=== PATIENT | female | born 1990 | race Caucasian/White ===

== ENCOUNTER 2017-12-21 11:40 | Emergency (ER) | payer OTHER ==
[2017-12-21 11:45] VITALS: O2SAT 99
[2017-12-21] MEDS ORDERED: Sodium Chloride 0.9% 1,000 ML IV STA (12:22)
[2017-12-21 13:02] LABS: BASO % 0.3 % (0.0-2.0); EOS # 0.1 K/uL (0.0-0.7); EOS % 0.5 % (0.0-4.0); HEMOGLOBIN 14.5 g/dL (12.0-16.0); LYMPH # 1.8 K/uL (1.0-4.3); LYMPH % 14.6 % (20.0-40.0); MEAN CELL VOLUME 81.4 fl (81.0-99.0); MEAN CORPUSCULAR HEMOGLOBIN 26.6 pg (27.0-31.0); MEAN CORPUSCULAR HGB CONC 32.7 g/dL (33.0-37.0); MEAN PLATELET VOLUME 7.5 fl (7.2-11.7); MONO # 0.7 K/uL (0.0-0.8); MONO % 5.7 % (0.0-10.0); NEUT % 78.9 % (50.0-75.0); RBC 5.45 Mil/uL (3.80-5.20); RED CELL DISTRIBUTION WIDTH 13.5 % (11.5-14.5); WHITE BLOOD COUNT 12.6 K/uL (4.8-10.8)
[2017-12-21 13:10] LABS: URINE BILIRUBIN NEGATIVE (NEGATIVE); URINE BLOOD NEGATIVE (NEGATIVE); URINE CLARITY SLIGHTY-CLOUDY (Clear); URINE COLOR YELLOW (YELLOW); URINE GLUCOSE (UA) NEG (Normal); URINE LEUKOCYTE ESTERASE NEG Leu/uL (Negative); URINE PROTEIN NEGATIVE (NEGATIVE); URINE UROBILINOGEN 0.2-1.0 mg/dL (0.2-1.0)
[2017-12-21 13:16] LABS: ALB/GLOB RATIO 1.4 (1.0-2.1); ALBUMIN 4.9 g/dL (3.5-5.0); ALT/SGPT 36 U/L (9-52); AST/SGOT 39 U/L (14-36); BLOOD UREA NITROGEN 9 mg/dl (7-17); CALCIUM 10.1 mg/dL (8.4-10.2); GFR NON-AFRICAN AMERICAN > 60; LIPASE 26 U/L (23-300)
--- NOTE | 2017-12-21 13:26 | CT ---
Date of service: 12/21/2017 PROCEDURE: CT Abdomen and Pelvis without intravenous contrast HISTORY: Left abdominal pain COMPARISON: None. TECHNIQUE: Helical CT of the abdomen and pelvis was performed without oral or intravenous contrast as per referring physician request. Coronal and sagittal reformats were generated. Contrast dose: None Radiation dose: Total exam DLP = 833.45 mGy-cm. This CT exam was performed using one or more of the following dose reduction techniques: Automated exposure control, adjustment of the mA and/or kV according to patient size, and/or use of iterative reconstruction technique. FINDINGS: LOWER THORAX: Unremarkable. LIVER: Unremarkable. No gross lesion or ductal dilatation. GALLBLADDER AND BILE DUCTS: Unremarkable. PANCREAS: Unremarkable. No gross lesion or ductal dilatation. SPLEEN: Unremarkable. ADRENALS: Unremarkable. No mass. KIDNEYS AND URETERS: No radiodense urolithiasis, perinephric fluid collection or obstructive uropathy is appreciate bilaterally. The bilateral ureters appear normal caliber overall. VASCULATURE: Unremarkable. No aortic aneurysm. No aortic atherosclerotic calcification or mural plaque present. BOWEL: Unremarkable. No obstruction. No gross mural thickening. APPENDIX: Unremarkable. Normal appendix. PERITONEUM: Unremarkable. No free fluid. No free air. LYMPH NODES: Unremarkable. No enlarged lymph nodes. BLADDER: Limited evaluation due to decompression. No radiodense urolithiasis is identified in the urinary bladder. REPRODUCTIVE: Trace fluid suspected in the pelvis of uncertain origin. Suspected jewelry at the labia. BONES: No acute fracture. OTHER FINDINGS: None. IMPRESSION: Unremarkable CT of the abdomen. Trace fluid question in the pelvis of uncertain origin. No suspicious adnexal mass appreciated either X compartment grossly.
[2017-12-21 13:38] LABS: BARBITURATES, UR NEGATIVE (NEGATIVE); BENZODIAZEPINES, UR NEGATIVE (NEGATIVE); OPIATES, UR NEGATIVE (NEGATIVE); PHENCYCLIDINE, UR NEGATIVE (NEGATIVE)
--- NOTE | 2017-12-21 14:26 | ED PDOC ---
HPI: Abdomen Time Seen by Provider: 12/21/17 12:05 Chief Complaint (Nursing): Abdominal Pain Chief Complaint (Provider): Abdominal Pain and Nausea History Per: Patient History/Exam Limitations: no limitations Onset/Duration Of Symptoms: Days (x4) Current Symptoms Are (Timing): Still Present Additional Complaint(s): Charisma Zhang, a 27 year old female with no significant past medical history, present to the ED complaining of abdominal pain, nausea, and nonbilious nonbl oody vomiting onset x4 days ago. Patient states pain is constant and gets worse with eating. She reports she has not been able to eat and drink due to constant chills, nausea, and vomiting. She states she went to the [employer] last week and was diagnosed with a vaginal yeast infection, and patient was prescribed Flagyl. She reports taking Flagyl on last Sunday, and symptoms onset afterwards. She stopped taking Flagyl two days later. She denies diarrhea, back pain, fever, and taking medications for abdominal pain, nausea, and vomiting. Patient admits to heavy smoking and marijuana use daily PCP: none provided Past Medical History Reviewed: Historical Data, Nursing Documentation, Vital Signs Vital Signs: Last Vital Signs Temp 97.7 F 12/21/17 11:45 Pulse 102 H 12/21/17 11:45 Resp 20 12/21/17 11:45 BP 168/90 H 12/21/17 11:45 Pulse Ox 99 12/21/17 11:45 - Medical History PMH: Anxiety, Asthma, Depression, HTN, Hypercholesterolemia - Surgical History Surgical History: No Surg Hx - Family History Family History: States: Unknown Family Hx - Social History Current smoker - smoking cessation education provided: Yes (heavy) Drugs: Cannabis (daily) - Home Medications Home Medications: Ambulatory Orders Medication Instructions Recorded Amoxicillin/Clavulanate [Augmentin 1 tab PO BID #14 tab 02/08/15 875 MG-125 MG] Escitalopram [Lexapro] 10 mg PO DAILY 02/08/15 Fluticasone Propionate [Flonase] 1 actuation NS DAILY #0 ml 02/08/15 Famotidine [Pepcid] 20 mg PO DAILY #14 tab 12/21/17 Metoclopramide HCl [Reglan] 10 mg PO TID PRN #15 tablet 12/21/17 Ondansetron ODT [Zofran ODT] 4 mg PO Q8 PRN #12 odt 12/21/17 - Allergies Allergies/Adverse Reactions: Allergies Allergy/AdvReac Type Severity Reaction Status Date / Time No Known Allergies Allergy Verified 02/08/15 16:07 Review of Systems ROS Statement: Except As Marked, All Systems Reviewed And Found Negative Constitutional: Positive for: Chills. Negative for: Fever Gastrointestinal: Positive for: Nausea, Vomiting, Abdominal Pain. Negative for: Diarrhea Musculoskeletal: Negative for: Back Pain Physical Exam - Reviewed Nursing Documentation Reviewed: Yes Vital Signs Reviewed: Yes - Physical Exam Appears: Positive for: Uncomfortable (due to nausea, vomiting, and dry heaving) Head Exam: Positive for: ATRAUMATIC, NORMAL INSPECTION, NORMOCEPHALIC Skin: Positive for: Normal Color, Warm Eye Exam: Positive for: EOMI, Normal appearance, PERRL ENT: Positive for: Normal ENT Inspection Cardiovascular/Chest: Positive for: Regular Rate, Rhythm. Negative for: Murmur Respiratory: Positive for: Normal Breath Sounds. Negative for: Respiratory Distress Gastrointestinal/Abdominal: Positive for: Soft, Tenderness (LUQ and Epigastric). Negative for: Distended, Rebound Back: Positive for: L CVA Tenderness Extremity: Positive for: Normal ROM. Negative for: Deformity Neurologic/Psych: Positive for: Mood/Affect (anxious) - Laboratory Results Result Diagrams: 12/21/17 12:57 12/21/17 12:57 - ECG O2 Sat by Pulse Oximetry: 99 (RA) Pulse Ox Interpretation: Normal - Progress Re-evaluation Time: 14:52 Condition: Re-examined, Improved Medical Decision Making Medical Decision Making: Time: 1220 Initial Impression: abdominal pain and vomiting. Differential includes but not limited to acute gastritis, pancreatitis, UTI, and kidney stone Initial Plan: --labs --CT ABD/Pelvis --Pepcid 20 mg IVP --Reglan 10 mg IV --UA --US gallbladder 1322 --CT ABD/Pelvis FINDINGS: LOWER THORAX: Unremarkable. LIVER: Unremarkable. No gross lesion or ductal dilatation. GALLBLADDER AND BILE DUCTS: Unremarkable. PANCREAS: Unremarkable. No gross lesion or ductal dilatation. SPLEEN: Unremarkable. ADRENALS: Unremarkable. No mass. KIDNEYS AND URETERS: No radiodense urolithiasis, perinephric fluid collection or obstructive uropathy is appreciate bilaterally. The bilateral ureters appear normal caliber overall. VASCULATURE: Unremarkable. No aortic aneurysm. No aortic atherosclerotic calcification or mural plaque present. BOWEL: Unremarkable. No obstruction. No gross mural thickening. APPENDIX: Unremarkable. Normal appendix. PERITONEUM: Unremarkable. No free fluid. No free air. LYMPH NODES: Unremarkable. No enlarged lymph nodes. BLADDER: Limited evaluation due to decompression. No radiodense urolithiasis is identified in the urinary bladder. REPRODUCTIVE: Trace fluid suspected in the pelvis of uncertain origin. Suspected jewelry at the labia. BONES: No acute fracture. OTHER FINDINGS: None. IMPRESSION: Unremarkable CT of the abdomen. Trace fluid question in the pelvis of uncertain origin. No suspicious adnexal mass appreciated either X compartment grossly. 1435 --US gallbladder FINDINGS: LIVER: Measures 13.2 cm in length. Patent portal vein. Portal venous flow: Hepatopetal. Unremarkable echogenicity of the liver parenchyma. No mass. No intrahepatic bile duct dilatation. GALLBLADDER: Unremarkable. No gallstones. COMMON BILE DUCT: Measures 2.5 mm. No stones. No dilatation. PANCREAS: Unremarkable as visualized. No mass. No ductal dilatation. RIGHT KIDNEY: Measures 5.3 x 12.4 cm in length. Normal echogenicity. No calculus, mass, or hydronephrosis. AORTA: No aneurysmal dilatation. IVC: Unremarkable. OTHER FINDINGS: None . IMPRESSION: No significant or acute findings to account for/ related to the clinical presentation. 1453 --upon provider revaluation, patient is feeling much better with no abdominal pain. Upon provider reevaluation patient is feeling better, is medically stable, and requires no further treatment in the ED at this time. Patient will be discharged home. Counseling was provided and all questions were answered regarding diagnosis. There is agreement to discharge plan. Return if symptoms persist or worsen. Scribe Attestation: Documented by Isaiah Jackson, acting as a scribe for Xander Carty MD. Provider Scribe Attestation: All medical record entries made by the Scribe were at my direction and personally dictated by me. I have reviewed the chart and agree that the record accurately reflects my personal performance of the history, physical exam, medical decision making, and the department course for this patient. I have also personally directed, reviewed, and agree with the discharge instructions and disposition. Disposition - Clinical Impression Clinical Impression: Cannabis abuse, Abdominal pain in female - Patient ED Disposition Is Patient to be Admitted: No Doctor Will See Patient In The: Office Counseled Patient/Family Regarding: Studies Performed, Diagnosis, Need For F ollowup - Disposition Referrals: [facility] [Outside] Disposition: Routine/Home Disposition Time: 14:53 Condition: IMPROVED Additional Instructions: CHARISMA JENKINS, thank you for letting us take care of you today. Your provider was Xander Carty MD and you were treated for NAUSEA,HEADACHE,ABD PAIN. The emergency medical care you received today was directed at your acute symptoms. If you were prescribed any medication, please fill it and take as directed. It may take several days for your symptoms to resolve. Return to the Emergency Department if your symptoms worsen, do not improve, or if you have any other problems. Please contact your doctor or call one of the physicians/clinics you have been referred to that are listed on the Patient Visit Information form that is included in your discharge packet. Bring any paperwork you were given at discharge with you along with any medications you are taking to your follow up visit. Our treatment cannot replace ongoing medical care by a primary care provider outside of the emergency department. Thank you for allowing the [facility] team to be part of your care today. If you had an X-Ray or CT scan: A Radiologist will review the ED reading if any change in treatment is needed we will contact you. If you had a blood, urine, or wound culture: It will take several days for the results, if any change in treatment is needed we will contact you. If you had an STI test: It will take 48 hours for the results. Please call after 1 week if you have not heard back. Prescriptions: Famotidine [Pepcid] 20 mg PO DAILY #14 tab Metoclopramide HCl [Reglan] 10 mg PO TID PRN #15 tablet PRN Reason: Nausea/Vomiting Ondansetron ODT [Zofran ODT] 4 mg PO Q8 PRN #12 odt PRN Reason: Nausea/Vomiting Instructions: Stomach Ache and Stomach Upset, Marijuana Use and Addiction (DC)
--- NOTE | 2017-12-21 14:39 | US ---
Date of service: 12/21/2017 HISTORY: Epigastric pain and vomiting. COMPARISON: None. TECHNIQUE: Sonographic evaluation of the right upper quadrant of the abdomen. FINDINGS: LIVER: Measures 13.2 cm in length. Patent portal vein. Portal venous flow: Hepatopetal. Unremarkable echogenicity of the liver parenchyma. No mass. No intrahepatic bile duct dilatation. GALLBLADDER: Unremarkable. No gallstones. COMMON BILE DUCT: Measures 2.5 mm. No stones. No dilatation. PANCREAS: Unremarkable as visualized. No mass. No ductal dilatation. RIGHT KIDNEY: Measures 5.3 x 12.4 cm in length. Normal echogenicity. No calculus, mass, or hydronephrosis. AORTA: No aneurysmal dilatation. IVC: Unremarkable. OTHER FINDINGS: None . IMPRESSION: No significant or acute findings to account for/ related to the clinical presentation.
[2017-12-21 15:10] VITALS: BP 124/64; PULSE 73; RESP 18; TEMP 98.8
== END 2017-12-21 15:30 | disposition home or self-care (01) ==
LOC: H.ER 11:40
DX: F12.10 Cannabis abuse, uncomplicated (principal); R10.2 Pelvic and perineal pain; F17.200 Nicotine dependence, unspecified, uncomplicated; I10 Essential (primary) hypertension; Z86.59 Personal history of other mental and behavioral disorders; J45.909 Unspecified asthma, uncomplicated; Z79.899 Other long term (current) drug therapy
CPT/HCPCS: 74176; 76705; 80053; 80324; 80345; 80346; 80349; 80353; 80358; 80361; 81003; 81025; 83690; 83992; 85025; 96374; 96375; 99284; J1885; J2405; J7030